=== PATIENT | female | born 1955 | race Caucasian/White ===

== ENCOUNTER 2017-11-04 15:36 | Emergency (ER) | payer OTHER ==
[2017-11-04] MEDS: LIDOCAINE/MYLANTA 40 ML BTL PO (17:20)
[2017-11-04] MEDS: PANTOPRAZOLE (EC) 40 MG TAB PO (17:20)
[2017-11-04] MEDS: KETOROLAC 30 MG INJ IM (17:20)
[2017-11-04] MEDS: ONDANSETRON (ODT) 4 MG TAB ODT (17:20)
== END 2017-11-04 18:03 | disposition home or self-care (01) ==
LOC: E/R 15:36
DX: G43.A0 Cyclical vomiting, in migraine, not intractable (principal)
CPT/HCPCS: 96372; 99284-25

== ENCOUNTER 2018-02-24 07:20 | Emergency (ER) | payer OTHER ==
[2018-02-24] MEDS: METOCLOPRAMIDE 10 MG INJ IV (07:54)
[2018-02-24] MEDS: FAMOTIDINE 20 MG INJ IV (07:54)
[2018-02-24] MEDS: DIPHENHYDRAMINE 50 MG INJ IV (07:54)
[2018-02-24] MEDS: SOD CHLORIDE 0.9% 1,000 ML IV (07:54)
[2018-02-24] MEDS: LIDOCAINE/MYLANTA 40 ML BTL PO (07:54)
[2018-02-24 08:11] LABS: ADD MAN DIFF? NO
[2018-02-24 08:15] LABS: BASOPHIL # 0.1 10^3/ul (0.0-0.1); BASOPHILS % 0.4 % (0.0-2.0); EOSINOPHILS % 0.1 % (0.0-7.0); HEMATOCRIT 44.1 % (37.0-47.0); HEMOGLOBIN 15.3 g/dl (12.0-16.0); LYMPHOCYTES # 1.5 10^3/ul (0.8-2.9); LYMPHOCYTES % 9.1 % (15.0-51.0); MEAN CORPUSCULAR HGB CONC 34.7 g/dl (32.0-37.0); MEAN CORPUSCULAR VOLUME 89.3 fl (82.0-101.0); MEAN PLATELET VOLUME 9.2 fl (7.4-10.4); MONOCYTE # 0.6 10^3/ul (0.3-0.9); MONOCYTES % 3.6 % (0.0-11.0); NEUTROPHIL # 14.7 10^3/ul (1.6-7.5); NEUTROPHILS % 86.2 % (39.0-77.0); PLATELET COUNT 479 10^3/UL (140-415); RED BLOOD COUNT 4.94 10^6/ul (4.20-5.40); RED CELL DISTRIBUTION WIDTH 13.2 % (11.5-14.5)
[2018-02-24] MEDS: HYDROmorphONE 0.5 MG/0.5 ML SYG IV ×2 (08:35→12:27)
[2018-02-24 08:38] LABS: ALANINE AMINOTRANSFERASE 29 IU/L (13-69); ALBUMIN 5.3 g/dl (3.3-4.9); ALKALINE PHOSPHATASE 103 IU/L (42-121); ANION GAP 23 (8-16); ASPARTATE AMINO TRANSFERASE 30 IU/L (15-46); BILIRUBIN,INDIRECT 0.7 mg/dl (0-1.1); BILIRUBIN,TOTAL 0.7 mg/dl (0.2-1.3); BLOOD UREA NITROGEN 16 mg/dl (7-20); CALCIUM 11.5 mg/dl (8.4-10.2); CARBON DIOXIDE 21 mmol/L (21-31); CHLORIDE 105 mmol/L (97-110); CREATININE 0.87 mg/dl (0.44-1.00); GLUCOSE 197 mg/dl (70-220); LIPASE 96 U/L (23-300); POTASSIUM 3.2 mmol/L (3.5-5.1); SODIUM 146 mmol/L (135-144); TOTAL PROTEIN 8.4 g/dl (6.1-8.1)
[2018-02-24 09:12] LABS: ADD UMIC YES; UR ASCORBIC ACID NEGATIVE (NEGATIVE); UR BILIRUBIN (Dip) NEGATIVE (NEGATIVE); UR BLOOD (Dip) 2+ mg/dL (NEGATIVE); UR CLARITY SLIGHTLY CLOUDY (CLEAR); UR COLOR STRAW (YELLOW); UR GLUCOSE (Dip) 2+ mg/dL (NEGATIVE); UR KETONES (Dip) 1+ mg/dL (NEGATIVE); UR LEUKOCYTE ESTERASE (Dip) NEGATIVE Leu/ul (NEGATIVE); UR NITRITE (Dip) NEGATIVE (NEGATIVE); UR RBC 17 /HPF (0-5); UR SPECIFIC GRAVITY (Dip) 1.011 (1.003-1.030); UR TOTAL PROTEIN (Dip) 2+ mg/dl (NEGATIVE); UR UROBILINOGEN (Dip) NEGATIVE (NEGATIVE); UR WBC 1 /HPF (0-5)
[2018-02-24] MEDS: POTASSIUM CHLORIDE (SR) 20 MEQ TAB PO (11:46)
[2018-02-24] MEDS ORDERED: DICYCLOMINE 20 MG INJ IM (12:00)
== END 2018-02-24 12:42 | disposition home or self-care (01) ==
LOC: E/R 07:20
DX: D72.829 Elevated white blood cell count, unspecified (principal); R40.2252 Coma scale, best verbal response, oriented, at arrival to emergency department; D47.3 Essential (hemorrhagic) thrombocythemia; E87.6 Hypokalemia; E87.2 Acidosis; R31.9 Hematuria, unspecified; K57.30 Diverticulosis of large intestine without perforation or abscess without bleeding; R40.2142 Coma scale, eyes open, spontaneous, at arrival to emergency department; R40.2362 Coma scale, best motor response, obeys commands, at arrival to emergency department
CPT/HCPCS: 36415; 74176; 80053; 81001; 83690; 85025; 93005; 96374; 96375; 96376; 99285-25

== ENCOUNTER 2018-03-17 05:31 | Inpatient (IN) | payer OTHER ==
[2018-03-17] MEDS ORDERED: ONDANSETRON 4 MG INJ IV (05:47)
[2018-03-17] MEDS: SOD CHLORIDE 0.9% 1,000 ML IV (06:28)
[2018-03-17] MEDS: FAMOTIDINE 20 MG INJ IV (06:30)
[2018-03-17] MEDS: METOCLOPRAMIDE 10 MG INJ IV (06:30)
[2018-03-17] MEDS: DICYCLOMINE 20 MG INJ IM (06:30)
[2018-03-17] MEDS: DIPHENHYDRAMINE 50 MG INJ IV (06:30)
[2018-03-17] MEDS: LIDOCAINE/MYLANTA 40 ML BTL PO (06:30)
[2018-03-17 06:35] LABS: ADD MAN DIFF? NO
[2018-03-17 06:36] LABS: BASOPHIL # 0.1 10^3/ul (0.0-0.1); BASOPHILS % 0.3 % (0.0-2.0); EOSINOPHILS % 0.2 % (0.0-7.0); HEMATOCRIT 43.1 % (37.0-47.0); LYMPHOCYTES # 2.2 10^3/ul (0.8-2.9); LYMPHOCYTES % 11.8 % (15.0-51.0); MEAN CORPUSCULAR HEMOGLOBIN 31.2 pg (29.0-33.0); MEAN CORPUSCULAR HGB CONC 34.8 g/dl (32.0-37.0); MEAN CORPUSCULAR VOLUME 89.6 fl (82.0-101.0); MEAN PLATELET VOLUME 9.4 fl (7.4-10.4); MONOCYTE # 0.9 10^3/ul (0.3-0.9); MONOCYTES % 4.8 % (0.0-11.0); NEUTROPHIL # 15.5 10^3/ul (1.6-7.5); NEUTROPHILS % 82.3 % (39.0-77.0); PLATELET COUNT 420 10^3/UL (140-415); RED BLOOD COUNT 4.81 10^6/ul (4.20-5.40); RED CELL DISTRIBUTION WIDTH 13.2 % (11.5-14.5)
[2018-03-17 06:36] LABS: WHITE BLOOD COUNT 18.8 10^3/ul (4.8-10.8)
[2018-03-17 06:59] LABS: ALANINE AMINOTRANSFERASE 27 IU/L (13-69); ALBUMIN 5.2 g/dl (3.3-4.9); ALBUMIN/GLOBULIN RATIO 1.85; ALKALINE PHOSPHATASE 84 IU/L (42-121); ANION GAP 19 (8-16); ASPARTATE AMINO TRANSFERASE 39 IU/L (15-46); BILIRUBIN,INDIRECT 0.9 mg/dl (0-1.1); BILIRUBIN,TOTAL 0.9 mg/dl (0.2-1.3); BLOOD UREA NITROGEN 15 mg/dl (7-20); CALCIUM 10.8 mg/dl (8.4-10.2); CARBON DIOXIDE 21 mmol/L (21-31); CHLORIDE 106 mmol/L (97-110); CREATININE 0.84 mg/dl (0.44-1.00); GLUCOSE 192 mg/dl (70-220); SODIUM 143 mmol/L (135-144)
[2018-03-17 07:07] LABS: LIPASE 2319 U/L (23-300)
[2018-03-17 07:18] LABS: ETHANOL < 10.0 mg/dl
[2018-03-17 07:33] LABS: ADD UMIC YES; UR ASCORBIC ACID NEGATIVE (NEGATIVE); UR BACTERIA FEW /HPF (NONE SEEN); UR BILIRUBIN (Dip) NEGATIVE (NEGATIVE); UR BLOOD (Dip) 2+ mg/dL (NEGATIVE); UR CLARITY CLEAR (CLEAR); UR COLOR STRAW (YELLOW); UR GLUCOSE (Dip) 2+ mg/dL (NEGATIVE); UR KETONES (Dip) TRACE mg/dL (NEGATIVE); UR LEUKOCYTE ESTERASE (Dip) NEGATIVE Leu/ul (NEGATIVE); UR NITRITE (Dip) NEGATIVE (NEGATIVE); UR RBC 16 /HPF (0-5); UR SPECIFIC GRAVITY (Dip) 1.011 (1.003-1.030); UR TOTAL PROTEIN (Dip) 2+ mg/dl (NEGATIVE); UR UROBILINOGEN (Dip) NEGATIVE (NEGATIVE); UR WBC 1 /HPF (0-5)
[2018-03-17 07:45] LABS: AMPHETAMINE/METHAMPHETAMINE Negative (NEGATIVE); BARBITURATES Negative (NEGATIVE); BENZODIAZEPINES Negative (NEGATIVE); CANNABINOIDS Positive (NEGATIVE); COCAINE Negative (NEGATIVE); OPIATES Negative (NEGATIVE)
[2018-03-17] MEDS: SOD CHLORIDE 0.9% 100 ML (08:16)
[2018-03-17] MEDS: IOHEXOL 300MG/ML 150 ML BTL (08:16)
[2018-03-17 08:26] LABS: LACTATE DEHYDROGENASE 607 IU/L (313-618)
[2018-03-17] MEDS ORDERED: ACETAMINOPHEN 325 MG TAB PO (08:30)
[2018-03-17 08:33] LABS: C-REACTIVE PROTEIN < 0.5 mg/dl (0.0-0.9)
[2018-03-17] MEDS: POTASSIUM CHLORIDE 50 ML IVPB ×3 (09:18→13:42)
[2018-03-17] MEDS: HYDROmorphONE 0.5 MG/0.5 ML SYG IV (10:06)
[2018-03-17] MEDS: PROCHLORPERAZINE 10 MG INJ IV (10:12)
[2018-03-17] MEDS: NICARDipine HCL 30 MG CAPSULE PO (11:01)
[2018-03-17] MEDS: ONDANSETRON 4 MG INJ IV (14:52)
[2018-03-17] MEDS: morphine 4 MG/ML VIAL IV (15:24)
[2018-03-17] MEDS ORDERED: morphine 2 MG INJ IV (15:30)
[2018-03-17] MEDS: morphine 2 MG INJ IV (15:38)
[2018-03-17] MEDS: D5W-0.45 NACL + KCL 20 MEQ 1,000 ML IV ×2 (15:45→20:24)
[2018-03-17] MEDS ORDERED: HYDROCODONE/APAP (5/325) TAB PO (16:00)
[2018-03-17] MEDS ORDERED: ZOLPIDEM 5 MG TAB PO (16:00)
[2018-03-17] MEDS: PANTOPRAZOLE 40 MG INJ IV (17:00)
[2018-03-17] MEDS: DOCUSATE SODIUM 100 MG CAP PO (17:00)
[2018-03-17] MEDS: POTASSIUM CHLORIDE (SR) 20 MEQ TAB PO (19:04)
[2018-03-17] MEDS: morphine LIQ (10 MG/5 ML) CUP PO (19:22)
[2018-03-18] MEDS: DOCUSATE SODIUM 100 MG CAP PO ×3 (01:00→20:20)
[2018-03-18] MEDS: PANTOPRAZOLE 40 MG INJ IV (05:29)
[2018-03-18] MEDS: D5W-0.45 NACL + KCL 20 MEQ 1,000 ML IV ×3 (05:29→15:46)
[2018-03-18 06:53] LABS: ADD MAN DIFF? NO
[2018-03-18 06:57] LABS: BASOPHILS % 0.3 % (0.0-2.0); EOSINOPHILS % 0.3 % (0.0-7.0); HEMATOCRIT 38.1 % (37.0-47.0); HEMOGLOBIN 12.9 g/dl (12.0-16.0); LYMPHOCYTES % 14.8 % (15.0-51.0); MEAN CORPUSCULAR HEMOGLOBIN 30.4 pg (29.0-33.0); MEAN CORPUSCULAR HGB CONC 33.9 g/dl (32.0-37.0); MEAN CORPUSCULAR VOLUME 89.6 fl (82.0-101.0); MEAN PLATELET VOLUME 9.6 fl (7.4-10.4); MONOCYTE # 1.1 10^3/ul (0.3-0.9); MONOCYTES % 8.3 % (0.0-11.0); NEUTROPHIL # 10.4 10^3/ul (1.6-7.5); NEUTROPHILS % 75.9 % (39.0-77.0); PLATELET COUNT 366 10^3/UL (140-415); RED BLOOD COUNT 4.25 10^6/ul (4.20-5.40)
[2018-03-18 06:57] LABS: WHITE BLOOD COUNT 13.7 10^3/ul (4.8-10.8)
[2018-03-18 07:20] LABS: AMYLASE 106 U/L (11-123)
[2018-03-18 07:20] LABS: LIPASE 512 U/L (23-300)
[2018-03-18 07:23] LABS: ALANINE AMINOTRANSFERASE 25 IU/L (13-69); ALBUMIN 3.9 g/dl (3.3-4.9); ALBUMIN/GLOBULIN RATIO 1.39; ALKALINE PHOSPHATASE 61 IU/L (42-121); ANION GAP 12 (8-16); ASPARTATE AMINO TRANSFERASE 35 IU/L (15-46); BILIRUBIN,INDIRECT 1.1 mg/dl (0-1.1); BILIRUBIN,TOTAL 1.1 mg/dl (0.2-1.3); BLOOD UREA NITROGEN 19 mg/dl (7-20); CALCIUM 8.7 mg/dl (8.4-10.2); CARBON DIOXIDE 22 mmol/L (21-31); CHLORIDE 107 mmol/L (97-110); CHOL/HDL RATIO 3.6 RATIO; CHOLESTEROL 213 mg/dl (100-200); CREATININE 1.12 mg/dl (0.44-1.00); GLUCOSE 99 mg/dl (70-220); HDL CHOLESTEROL 58 mg/dl (35-98); LDL CHOLESTEROL,CALCULATED 122 mg/dl; MAGNESIUM 1.7 mg/dl (1.7-2.5); PHOSPHORUS 2.7 mg/dl (2.5-4.9); POTASSIUM 3.7 mmol/L (3.5-5.1); SODIUM 137 mmol/L (135-144); TOTAL PROTEIN 6.7 g/dl (6.1-8.1); TRIGLYCERIDES 163 mg/dl (0-149)
[2018-03-18] MEDS: morphine 2 MG INJ IV (18:43)
[2018-03-18] MEDS: AL HYDROX/MG HYDROX/SIMETH 30 ML CUP PO (21:36)
[2018-03-19] MEDS: D5W-0.45 NACL + KCL 20 MEQ 1,000 ML IV ×2 (01:47→13:51)
[2018-03-19] MEDS: ACETAMINOPHEN 325 MG TAB PO (01:57)
[2018-03-19] MEDS: PANTOPRAZOLE 40 MG INJ IV (05:21)
[2018-03-19 06:11] LABS: ADD MAN DIFF? NO
[2018-03-19 06:22] LABS: BASOPHILS % 0.4 % (0.0-2.0); EOSINOPHILS % 0.4 % (0.0-7.0); HEMATOCRIT 39.5 % (37.0-47.0); HEMOGLOBIN 13.3 g/dl (12.0-16.0); MEAN CORPUSCULAR HEMOGLOBIN 30.4 pg (29.0-33.0); MEAN CORPUSCULAR HGB CONC 33.7 g/dl (32.0-37.0); MEAN CORPUSCULAR VOLUME 90.2 fl (82.0-101.0); MEAN PLATELET VOLUME 9.2 fl (7.4-10.4); MONOCYTE # 0.6 10^3/ul (0.3-0.9); MONOCYTES % 8.3 % (0.0-11.0); NEUTROPHIL # 5.3 10^3/ul (1.6-7.5); NEUTROPHILS % 76.6 % (39.0-77.0); PLATELET COUNT 296 10^3/UL (140-415); RED BLOOD COUNT 4.38 10^6/ul (4.20-5.40); RED CELL DISTRIBUTION WIDTH 13.5 % (11.5-14.5)
[2018-03-19 06:22] LABS: WHITE BLOOD COUNT 6.9 10^3/ul (4.8-10.8)
[2018-03-19 06:35] LABS: INR 1.07; PT RATIO 1.1
[2018-03-19 06:36] LABS: PARTIAL THROMBOPLASTIN TIME 27.1 Sec (25.0-35.0)
[2018-03-19 06:45] LABS: PHOSPHORUS 2.8 mg/dl (2.5-4.9)
[2018-03-19 06:50] LABS: ALANINE AMINOTRANSFERASE 28 IU/L (13-69); ALBUMIN 4.1 g/dl (3.3-4.9); ALBUMIN/GLOBULIN RATIO 1.57; ALKALINE PHOSPHATASE 72 IU/L (42-121); ANION GAP 12 (8-16); ASPARTATE AMINO TRANSFERASE 29 IU/L (15-46); BILIRUBIN,INDIRECT 1.5 mg/dl (0-1.1); BILIRUBIN,TOTAL 1.5 mg/dl (0.2-1.3); BLOOD UREA NITROGEN 8 mg/dl (7-20); CALCIUM 8.9 mg/dl (8.4-10.2); CARBON DIOXIDE 21 mmol/L (21-31); CHLORIDE 109 mmol/L (97-110); CREATININE 0.76 mg/dl (0.44-1.00); GLUCOSE 113 mg/dl (70-220); POTASSIUM 3.9 mmol/L (3.5-5.1); SODIUM 138 mmol/L (135-144); TOTAL PROTEIN 6.7 g/dl (6.1-8.1)
[2018-03-19] MEDS: DOCUSATE SODIUM 100 MG CAP PO (09:00)
[2018-03-19] MEDS: ONDANSETRON 4 MG INJ IV (10:24)
[2018-03-19 12:33] LABS: AMYLASE 78 U/L (11-123)
[2018-03-19 12:33] LABS: LIPASE 103 U/L (23-300)
== END 2018-03-19 16:40 | disposition home or self-care (01) | DRG 440 ==
LOC: 2NE 12:07 → E/R 05:31 → 2NE 08:26
DX: K85.90 Acute pancreatitis without necrosis or infection, unspecified (principal); D72.829 Elevated white blood cell count, unspecified; F12.188 Cannabis abuse with other cannabis-induced disorder; R11.2 Nausea with vomiting, unspecified; Z87.11 Personal history of peptic ulcer disease
CPT/HCPCS: 36415; 74177; 80053; 80061; 80307; 81001; 82150; 83615; 83690; 83735; 84100; 85025; 85610; 85730; 86140; 87086; 93005; 96372; 96374; 96375; 99285-25

== ENCOUNTER 2018-04-27 15:13 | Emergency (ER) | payer SELFPAY, OTHER | END 2018-04-27 19:47 | disposition left against medical advice (07) | LOC: E/R 15:13 | DX: Z53.21 Procedure and treatment not carried out due to patient leaving prior to being seen by health care provider (principal) ==

== ENCOUNTER 2018-11-22 11:43 | Inpatient (IN) | payer OTHER ==
[2018-11-22] MEDS: KETOROLAC 15 MG INJ IV (12:28)
[2018-11-22] MEDS: LACTATED RINGER'S 1,000 ML IV (12:28)
[2018-11-22] MEDS: ONDANSETRON 4 MG INJ IV ×2 (12:28→17:11)
[2018-11-22 12:34] LABS: ABNORMAL IP MESSAGE 1; HEMATOCRIT 38.7 % (37.0-47.0); HEMOGLOBIN 13.8 g/dl (12.0-16.0); MEAN CORPUSCULAR HEMOGLOBIN 30.5 pg (29.0-33.0); MEAN CORPUSCULAR HGB CONC 35.7 g/dl (32.0-37.0); MEAN CORPUSCULAR VOLUME 85.4 fl (82.0-101.0); MEAN PLATELET VOLUME 8.9 fl (7.4-10.4); PLATELET COUNT 664 10^3/UL (140-415); RED BLOOD COUNT 4.53 10^6/ul (4.20-5.40); RED CELL DISTRIBUTION WIDTH 13.2 % (11.5-14.5)
[2018-11-22 12:37] LABS: ADD MAN DIFF? YES; POSITIVE DIFF @See below
[2018-11-22 12:51] LABS: ALANINE AMINOTRANSFERASE 26 IU/L (13-69); ALBUMIN 4.7 g/dl (3.3-4.9); ALBUMIN/GLOBULIN RATIO 1.38; ALKALINE PHOSPHATASE 115 IU/L (42-121); ANION GAP 22 (5-13); ASPARTATE AMINO TRANSFERASE 28 IU/L (15-46); BILIRUBIN,INDIRECT 0.9 mg/dl (0-1.1); BILIRUBIN,TOTAL 0.9 mg/dl (0.2-1.3); BLOOD UREA NITROGEN 22 mg/dl (7-20); CALCIUM 9.6 mg/dl (8.4-10.2); CARBON DIOXIDE 26 mmol/L (21-31); CHLORIDE 82 mmol/L (97-110); CREATININE 1.16 mg/dl (0.44-1.00); Estimated GFR 47 mL/min (>60); GLUCOSE 136 mg/dl (70-220); LIPASE 116 U/L (23-300); SODIUM 130 mmol/L (135-144); TOTAL PROTEIN 8.1 g/dl (6.1-8.1)
[2018-11-22 12:58] LABS: BAND NEUTROPHILS #M 1.4 10^3/ul (0.0-0.6); BAND NEUTROPHILS % (M) 7 % (0-4); BURR CELLS 1+ (0-0); METAMYELOCYTES #M 0.2 10^3/ul (0.0-0.0); METAMYELOCYTES %M 1 % (0-0); MONOCYTE #M 1.6 10^3/ul (0.3-0.9); MONOCYTES % (M) 8 % (0-11); PLATELET ESTIMATE INCREASED; POIKILOCYTOSIS 1+ (0-0); SEG NEUT #M 17.9 10^3/ul (1.6-7.5); SEGMENTED NEUTROPHILS (M) % 84 % (39-77); SMUDGE%M 33 % (0-0)
[2018-11-22 13:03] LABS: POTASSIUM 2.5 mmol/L (3.5-5.1); TROPONIN-I < 0.012 ng/ml (0.000-0.120)
[2018-11-22] MEDS: METOCLOPRAMIDE 10 MG INJ IV (13:33)
[2018-11-22] MEDS: POTASSIUM CHLORIDE 100 ML IVPB ×4 (14:11→19:54)
[2018-11-22] MEDS: MAGNESIUM SULFATE 2 GM/50 ML 50 ML IVPB (14:11)
[2018-11-22] MEDS ORDERED: NACL 0.9% 3 ML SYG IV (17:00)
[2018-11-22] MEDS ORDERED: ACETAMINOPHEN 325 MG TAB PO (17:00)
[2018-11-22] MEDS ORDERED: DOCUSATE SODIUM 100 MG CAP PO (17:00)
[2018-11-22] MEDS ORDERED: HYDROCODONE/APAP (5/325) TAB PO (17:00)
[2018-11-22] MEDS: morphine 2 MG INJ IV (17:11)
[2018-11-22] MEDS: POTASSIUM CHLORIDE 40 MEQ in SOD CHLORIDE 0.9% 1,000 ML IV (20:34)
[2018-11-22] MEDS ORDERED: ZOLPIDEM 5 MG TAB PO (21:00)
[2018-11-23] MEDS: POTASSIUM CHLORIDE 40 MEQ in SOD CHLORIDE 0.9% 1,000 ML IV ×3 (02:30→17:57)
[2018-11-23 06:39] LABS: ADD MAN DIFF? NO
[2018-11-23 06:43] LABS: BASOPHIL # 0.1 10^3/ul (0.0-0.1); BASOPHILS % 0.6 % (0.0-2.0); EOSINOPHILS % 0.2 % (0.0-7.0); HEMATOCRIT 38.6 % (37.0-47.0); HEMOGLOBIN 13.3 g/dl (12.0-16.0); LYMPHOCYTES % 17.3 % (15.0-51.0); MEAN CORPUSCULAR HEMOGLOBIN 30.4 pg (29.0-33.0); MEAN CORPUSCULAR HGB CONC 34.5 g/dl (32.0-37.0); MEAN CORPUSCULAR VOLUME 88.1 fl (82.0-101.0); MEAN PLATELET VOLUME 8.7 fl (7.4-10.4); MONOCYTE # 1.4 10^3/ul (0.3-0.9); MONOCYTES % 8.4 % (0.0-11.0); NEUTROPHIL # 11.7 10^3/ul (1.6-7.5); NEUTROPHILS % 68.5 % (39.0-77.0); PLATELET COUNT 590 10^3/UL (140-415); RED BLOOD COUNT 4.38 10^6/ul (4.20-5.40); RED CELL DISTRIBUTION WIDTH 13.9 % (11.5-14.5)
[2018-11-23 06:43] LABS: WHITE BLOOD COUNT 17.1 10^3/ul (4.8-10.8)
[2018-11-23 07:07] LABS: HEMOGLOBIN A1C 5.5 % (0-5.9)
[2018-11-23 07:14] LABS: ALANINE AMINOTRANSFERASE 24 IU/L (13-69); ALBUMIN 3.8 g/dl (3.3-4.9); ALBUMIN/GLOBULIN RATIO 1.22; ALKALINE PHOSPHATASE 95 IU/L (42-121); ANION GAP 10 (5-13); ASPARTATE AMINO TRANSFERASE 25 IU/L (15-46); BILIRUBIN,INDIRECT 0.8 mg/dl (0-1.1); BILIRUBIN,TOTAL 0.8 mg/dl (0.2-1.3); BLOOD UREA NITROGEN 14 mg/dl (7-20); CARBON DIOXIDE 28 mmol/L (21-31); CHLORIDE 95 mmol/L (97-110); CREATININE 1.04 mg/dl (0.44-1.00); Estimated GFR 54 mL/min (>60); GLUCOSE 91 mg/dl (70-220); MAGNESIUM 2.6 mg/dl (1.7-2.5); PHOSPHORUS 3.5 mg/dl (2.5-4.9); POTASSIUM 3.3 mmol/L (3.5-5.1); SODIUM 133 mmol/L (135-144); TOTAL PROTEIN 6.9 g/dl (6.1-8.1)
[2018-11-23] MEDS: ONDANSETRON 4 MG INJ IV ×3 (08:09→19:45)
[2018-11-23] MEDS: morphine 2 MG INJ IV ×3 (11:41→19:45)
[2018-11-23] MEDS: LORAZEPAM 2 MG INJ IV (12:02)
[2018-11-23] MEDS ORDERED: LABETALOL HCL 20MG INJ IV (16:00)
[2018-11-23] MEDS: LABETALOL HCL 20MG INJ IV (16:05)
[2018-11-23] MEDS: KETOROLAC 15 MG INJ IV (18:24)
[2018-11-24] MEDS: morphine 2 MG INJ IV (00:02)
[2018-11-24] MEDS: POTASSIUM CHLORIDE 40 MEQ in SOD CHLORIDE 0.9% 1,000 ML IV (04:04)
[2018-11-24 08:02] LABS: ABNORMAL IP MESSAGE 1; HEMATOCRIT 38.2 % (37.0-47.0); HEMOGLOBIN 12.7 g/dl (12.0-16.0); MEAN CORPUSCULAR HEMOGLOBIN 29.5 pg (29.0-33.0); MEAN CORPUSCULAR HGB CONC 33.2 g/dl (32.0-37.0); MEAN CORPUSCULAR VOLUME 88.6 fl (82.0-101.0); MEAN PLATELET VOLUME 8.9 fl (7.4-10.4); PLATELET COUNT 573 10^3/UL (140-415); RED BLOOD COUNT 4.31 10^6/ul (4.20-5.40); RED CELL DISTRIBUTION WIDTH 13.5 % (11.5-14.5)
[2018-11-24 08:02] LABS: WHITE BLOOD COUNT 11.8 10^3/ul (4.8-10.8)
[2018-11-24 08:06] LABS: ADD MAN DIFF? YES; POSITIVE DIFF @See below
[2018-11-24 08:13] LABS: ANION GAP 11 (5-13); BLOOD UREA NITROGEN 11 mg/dl (7-20); CALCIUM 8.3 mg/dl (8.4-10.2); CARBON DIOXIDE 22 mmol/L (21-31); CHLORIDE 98 mmol/L (97-110); CREATININE 0.81 mg/dl (0.44-1.00); Estimated GFR > 60 mL/min (>60); GLUCOSE 81 mg/dl (70-220); PHOSPHORUS 3.4 mg/dl (2.5-4.9); POTASSIUM 3.5 mmol/L (3.5-5.1); SODIUM 131 mmol/L (135-144)
[2018-11-24 08:58] LABS: ANISOCYTOSIS 1+ (0-0); BAND NEUTROPHILS #M 0.4 10^3/ul (0.0-0.6); BAND NEUTROPHILS % (M) 4 % (0-4); BURR CELLS 1+ (0-0); EOSINOPHILS % (M) 1 % (0-7); LYMPHOCYTES #M 2.8 10^3/ul (0.8-2.9); LYMPHOCYTES % (M) 24 % (15-51); METAMYELOCYTES #M 0.1 10^3/ul (0.0-0.0); METAMYELOCYTES %M 1 % (0-0); MICROCYTOSIS 1+ (0-0); MONOCYTE #M 0.4 10^3/ul (0.3-0.9); MONOCYTES % (M) 4 % (0-11); MYELOCYTES #M 0.1 10^3/ul (0.0-0.0); MYELOCYTES % (M) 1 % (0-0); PLATELET ESTIMATE INCREASED; POIKILOCYTOSIS 2+ (0-0); POLYCHROMASIA 1+ (0-0); REACTIVE LYMPHOCYTES #M 0.8 10^3/ul (0.0-0.0); REACTIVE LYMPHOCYTES% (M) 7 % (0-0); SEG NEUT #M 6.9 10^3/ul (1.6-7.5); SEGMENTED NEUTROPHILS (M) % 58 % (39-77); SMUDGE%M 10 % (0-0); TEAR DROP CELLS 1+ (0-0)
== END 2018-11-24 12:05 | disposition home or self-care (01) | DRG 103 ==
LOC: E/R 11:43 → TEL 13:51
DX: G43.A0 Cyclical vomiting, in migraine, not intractable (principal); E87.1 Hypo-osmolality and hyponatremia; T40.7X5A Adverse effect of cannabis (derivatives), initial encounter; E87.6 Hypokalemia; F12.90 Cannabis use, unspecified, uncomplicated; Z72.0 Tobacco use; E86.0 Dehydration; I45.81 Long QT syndrome; D72.829 Elevated white blood cell count, unspecified; I10 Essential (primary) hypertension
CPT/HCPCS: 36415; 80048; 80053; 83036; 83690; 83735; 84100; 84484; 85025; 93005; 96374; 96375; 99285-25